=== PATIENT | female | born 2000 | race African-American/Black ===

== ENCOUNTER 2024-04-15 12:09 | Emergency (ER) | payer OTHER, SELFPAY ==
--- NOTE | ~2024-04-15 | XR_ITS ---
EXAMINATION: XR HAND/WRIST, LEFT CLINICAL INFORMATION: History injury, wrist pain COMPARISON: None TECHNIQUE: PA, lateral, and oblique views of the left hand and wrist. FINDINGS: The bones and soft tissues are normal. No fracture. Alignment is anatomic. Joint spaces are maintained. No erosions or soft tissue calcifications. XR/XR hand wrist LT IMPRESSION: No acute osseous process
[2024-04-15 12:55] VITALS: BP 117/76; PULSE 70; RESP 16; TEMP 36.5; O2SAT 100; BMI 33.3
--- NOTE | 2024-04-15 12:59 | ED_ITS ---
HPI - Extremity Problem General Chief complaint: Extremity Injury, Upper Stated complaint: Hand injury @ work Time Seen by Provider: 04/15/24 14:41 Source: patient Mode of arrival: ambulatory Limitations: no limitations History of Present Illness HPI Narrative: Patient is a 23-year-old female Right-hand dominant who presents emergency department for evaluation of left wrist pain. 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 She denies numbness tingling cold sensation to the hand. No redness bruising swelling or deformity. Pain is made worse with movement of the wrist joint, has full range of motion to the fingers Related Data Allergies Allergy/AdvReac Type Severity Reaction Status Date / Time No Known Allergies Allergy Verified 04/15/24 12:57 Review of Systems Review of Systems: Yes all other systems are reviewed and are negative PMFSH Past Medical History Attestation statement: The following information was validated with the patient. Source: old records reviewed Social History Social History Advance Directives: No Advance Directives Information Provided: No Do you have a plan to hurt others: No Plan Physical Exam Vital Signs: Vital Signs: Last Vital Signs Temp 98.2 F 04/15/24 16:30 Pulse 90 04/15/24 16:30 Resp 18 04/15/24 16:30 BP 135/70 04/15/24 16:30 Pulse Ox 100 04/15/24 16:30 O2 Del Method Room Air 04/15/24 16:30 BMI result Body Mass Index 33.3 Appearance: Alert.?Oriented to person, place and time. No acute distress.?Normal affect. Neck: Normal inspection.? Neck supple.?? CVS: Heart sounds normal. Normal heart rate and rhythm.? Pulses normal.?? Respiratory: No respiratory distress.? Lung sounds clear to auscultation bilaterally?? Skin: Skin warm and dry.? Normal skin color.? Extremities: No lower extremity edema.? decreased AROM to left wrist due to pain, full AROM to the digits. No erythema. No warmth. 2+ radial pulse bilaterally Neuro: Moves all extremities spontaneously. Sensation intact bilaterally. Ambulates with normal steady gait. Course Course Course Narrative: RME: [employer]One by ROHITH Ramírez. 23-year-old female presents to ED for left wrist pain. Patient states yesterday at work car bounced back and pushed against her hand with caused her left wrist to hyperextend. Motor neurovascular exam intact. Sent for x-rays. No ecchymosis or deformities. Medications Administered Discontinued Medications Generic Name Dose Route Start Last Admin Trade Name Justina PRN Reason Stop Dose Admin Ibuprofen 800 mg 04/15/24 13:25 04/15/24 13:27 Ibuprofen 800 Mg Tablet PO 04/15/24 13:26 800 mg ONCE ONE Administration Medical Decision Making Medical Decision Making MDM Narrative: patient is a 23-year-old female who presents emergency department for evaluation of traumatic left wrist pain, she is right-hand dominant. No obvious deformity or swelling on evaluation. No snuffbox tenderness. Extremity is neurovascularly intact distally. XR was obtained no acute fracture dislocation. At this time symptoms most consistent with a sprain to the left wrist. No past medical history or exam findings to be concern for septic joint. Placed in a volar splint, advised follow-up with PCP/ workman's comp with her employer. Acetaminophen/ ibuprofen for pain, rest, ice, elevation. Discussed worrisome signs and symptoms that would warrant re-evaluation in the emergency department. All questions answered. Differential Diagnosis Differential Diagnoses: The differential diagnosis associated with the presentation includes ( See narrative above) Independent Interpretation I performed an independent interpretation of an: Plain X-Ray ( no acute fracture) Radiology Impression Discussion of test interpretation with radiology: I have reviewed the radiologist's reading. Radiologist Impression: XR/XR hand wrist LT IMPRESSION: No acute osseous process Prescription Management I considered prescription management with: Pain Medication ( acetaminophen/ibuprofen) Discharge Plan Discharge Clinical Impression: Sprain of left wrist Patient Disposition: Home, Self-Care Instructions: Wrist Sprain (ED) Additional Instructions: X-ray today does not show any evidence of any fracture or dislocation. You can take ibuprofen 200 mg, 3 tablets (600mg) every 6-8 hours as needed for pain, in addition to Tylenol 500 mg, 2 tablets (1,000mg) every 4-6 hours as needed for pain, but not to exceed 3 doses daily (3,000mg).? as discussed, given this is a work-related injury please contact your employer to determine their policy regarding workman's Comp and return to work. Follow-up with your primary care provider. Referrals: Physician,Unknown J [Primary Care Provider] - Stand Alone Forms: Work/School Release Interventions: ED Discharge Assessment Last Done: 04/15/24 16:30 Discharge Date/Time: 04/15/24 16:31 Print Language: Vietnamese
[2024-04-15] MEDS: Ibuprofen 800 MG TABLET PO (13:27)
[2024-04-15 14:30] VITALS: BP 133/74; PULSE 90; TEMP 36.7; O2SAT 100
[2024-04-15 16:30] VITALS: BP 135/70; PULSE 90; RESP 18; TEMP 36.8; O2SAT 100
== END 2024-04-15 16:31 | disposition home or self-care (01) ==
PROVIDERS: Emergency Provider Emergency Medicine
DX: S63.502A Unspecified sprain of left wrist, initial encounter (principal); X50.1XXA Overexertion from prolonged static or awkward postures, initial encounter; Y93.9 Activity, unspecified; Y92.89 Other specified places as the place of occurrence of the external cause; Y99.0 Civilian activity done for income or pay
CPT/HCPCS: 73110; 73130; 99283; 99284

== ENCOUNTER 2025-05-08 10:58 | Outpatient (AMB) | payer OTHER, SELFPAY ==
--- NOTE | 2025-05-08 11:01 | A.OFFPC_ITS ---
Vital Signs 05/08/25 11:05 Height 5 ft 4.17 in Weight 203 lb BMI 34.7 BP 117/80 Respiration 14 Pulse 66 Pulse Source Pulse Oximeter Temp 98.2 F Temp Source Temporal Artery Scan Pulse Oximetry (%) 100 Oxygen Delivery Method Room Air Intake Visit Reasons: establish care; new lump, left breast General Internal Medicine Doctor Required: No Accompanied by: Self / Same As Patient Allergies No Known Allergies Allergy (Verified 05/08/25 11:15) Medication List - Last Reconciled 05/08/25 by Lian Al PA-C No Known Home Meds Tobacco use date assessed: 05/08/25 Dental Screening Dental Screen Date: 05/08/25 Did you have a dental visit in the last 12 months?: Yes Did you have a dental problem in the last 6 months where you did not have access to dental care?: No Was dental information given to patient?: Patient has dentist HPI establish care; new lump, left breast HPI Details The patient is a 24-year-old female presenting for a new patient appointment and evaluation of a right breast lump. The patient has a history of epilepsy, with no seizures reported recently, allowing her to drive. The etiology of the seizures remains unknown, and she no longer sees a neurologist. Previous evaluations included EEGs and brain imaging, which were unremarkable. The patient reports a right breast lump noticed by her mother approximately one week ago. There is no associated pain, discharge, or family history of breast cancer. [facility] Medical History Class 1 obesity with body mass index (BMI) of 34.0 to 34.9 in adult Epilepsy Establishing care with new doctor, encounter for Lump of right breast Family History Father No problems noted. Mother No problems noted. Social History Housing: House Alcohol intake: current Alcohol intake frequency: holidays/special occasions only Patient Tobacco Use Status: Never used Tobacco service: No Current occupational status: employed Cognitive needs: No Hearing needs: No Vision needs: No Questionnaire PHQ-9 Over the last 2 weeks, how often have you been bothered by any of the following problems? 1. Little interest or pleasure in doing things: not at all 2. Feeling down, depressed, or hopeless: not at all 3. Trouble falling or staying asleep, or sleeping too much: not at all 4. Feeling tired or having little energy: not at all 5. Poor appetite or overeating: not at all 6. Feeling bad about yourself - or that you are a failure or have let yourself or your family down: not at all 7. Trouble concentrating on things, such as reading the newspaper or watching television: not at all 8. Moving or speaking so slowly that other people could have noticed. Or the opposite - being so fidgety or restless that you have been moving around a lot more than usual: not at all 9. Thoughts that you would be better off or of hurting yourself in some way: not at all Total score: 0 Depression Screening Interpretation: Negative Depression Screening Done: Yes 45277 - PHQ-9 Billing: Yes Source: Developed by Drs. Aram Cadena, Malaika Saavedra, Eulogio Torres and colleagues, with an educational oracio from [employer]. Thrive Questionnaire Date Thrive assessed: 05/08/25 I am a: Patient What is your living situation today?: I have a steady place to live Within the past 12 months, did the food you bought not last and you didn't have the money to get more?: Never true Within the past 12 months, did you worry whether your food would run out before you got money to buy more?: Never true Do you have trouble paying for medicines?: No Do you have trouble getting transportation to medical appointments?: No Do you have trouble paying your heating and electricity bill?: No Do you have trouble taking care of your child, family member or friend?: No Do you have trouble with day-to-day activities such as bathing, preparing meals, shopping, managing finances, etc.?: No Are you currently unemployed and looking for a job?: No Are you interested in more education?: No Please select the resources that you would like help with: None THRIVE Score: 0 AUDIT C Alcohol Use Questionnaire (AUDIT-C) 1. How often do you have a drink containing alcohol?: Monthly or less 2. How many drinks containing alcohol do you have on a typical day when you are drinking?: 1 or 2 3. How often do you have six or more drinks on one occasion?: Never Total Score: 1 Score Reviewed/Action Taken: No ZOILA-7 AMB Questionnaire ZOILA-7 Date ZOILA - 7 assessed: 05/08/25 Feeling nervous, anxious, or on edge: 0 = Not at all Not being able to stop or control worryin = Not at all Worrying too much about different things: 0 = Not at all Trouble relaxin = Not at all Being so restless that it is hard to sit still: 0 = Not at all Becoming easily annoyed or irritable: 0 = Not at all Feeling afraid as if something awful might happen: 0 = Not at all Total ZOILA-7 score (0-4 normal; 5-9 mild; 10-14 moderate; 15-21 severe): 0 Source: Developed by Drs. Aram Cadena, Malaika Saavedra, Eulogio Torres and colleagues, with an educational oracio from [employer]. ZOILA-7 Assessment Billing ZOILA-7 Assessment Tool: ZOILA-7 Assessment 26902 Review of Systems Const Details: - Neurological: Denies recent seizures. - Breast: Reports right breast lump, denies pain or discharge. - Gastrointestinal: Denies abdominal pain, black or bloody stools. - Cardiovascular: Denies chest pain, shortness of breath. - General: Denies leg swelling. Physical exam (Primary Care) Vital Signs: Last Vital Signs Temp 98.2 F 05/08/25 11:05 Pulse 66 05/08/25 11:05 Resp 14 05/08/25 11:05 BP 117/80 05/08/25 11:05 Pulse Ox 100 05/08/25 11:05 Oxygen Delivery Method Room Air 05/08/25 11:05 Care Plan Goal for BP management: <140/90 at Goal BMI result Body Mass Index 34.7 BMI Assessment/Plan discussion: High BMI High, discussed plan: lifestyle, weight reduction, dietary, physical activity and alcohol moderation Tobacco/Smoking Status: Tobacco use Status Tobacco use date assessed 05/08/25 05/08/25 11:09 Patient Tobacco Use Status Never used Tobacco 05/08/25 11:09 PHQ-9: PHQ-9 Score PHQ-9: Total score 0 05/08/25 11:09 Depression Screening Interpretation: Negative Thrive Assessment: Date of Thrive Assessment Date Thrive assessed 05/08/25 05/08/25 11:09 Const Other: Appearance: Alert. Oriented X3. No acute distress. Head: Normal external exam. Normocephalic. Atraumatic. Eyes: Pupils are equal, round, and reactive to light. Extraocular movements intact. Conjunctiva and sclera normal. Eyelids normal. Ears: External auditory canal normal. Tympanic membranes normal. Throat: Pharynx normal. Uvula midline. Moist mucous membranes. Neck: Normal inspection. Neck supple. Full range of motion. No adenopathy. Cardiovascular: Normal heart rate and rhythm. Respiratory: No respiratory distress. Painless inspiration. Breast: To right breast patient has a possible ingrown hair to right breast 8-9 o'clock aspect of right breast aspect. No nipple discharge. No additional lumps noted. No lymphadenopathy noted. Left breast completely normal exam. Back: Full range of motion noted. Skin: Skin warm and dry. Normal skin color. Normal skin turgor. No rashes/lesions/lacerations noted. Extremities: Extremities exhibit normal range of motion. Extremities nontender. Neuro: Oriented X 3. No motor deficit. No sensory deficit. Reflexes normal. Coding Level of Care Code New Pt Level 4 (45120) Complex EM visit Add On G2211 Diagnoses Establishing care with new doctor, encounter for Z76.89 Lump of right breast N63.10 Epilepsy G40.909 Class 1 obesity with body mass index (BMI) of 34.0 to 34.9 in adult E66.811; Z68.34 Additional Codes PHQ-9 - 68087 - PHQ-9 Billing: Yes ([id number]) ZOILA-7 Assessment Billing - ZOILA-7 Assessment Tool: ZOILA-7 Assessment 58657 ([id number]) Assessment & Plan Assessment & Plan (1) Establishing care with new doctor, encounter for: Code(s): Z76.89 - Persons encountering health services in other specified circumstances Category: Medical (2) Lump of right breast: Comment: at 8-9 O'clock position Code(s): N63.10 - Unspecified lump in the right breast, unspecified quadrant Category: Medical Plan: The patient reports a right breast lump noticed by her mother approximately one week ago. There is no associated pain, discharge, or family history of breast cancer. An ultrasound has been ordered, and the patient will be contacted within two to three weeks for scheduling. Warm compresses and topical Bactroban are recommended to manage the lump. (3) Epilepsy: Code(s): G40.909 - Epilepsy, unspecified, not intractable, without status epilepticus Category: Medical Plan: The patient has a history of epilepsy with no recent seizures, allowing her to drive. The etiology remains unknown, she follows up with Neurology in [place]. Reports that she followed up with them approximately 1 year ago. Condition is chronic and stable will continue to monitor. (4) Class 1 obesity with body mass index (BMI) of 34.0 to 34.9 in adult: Code(s): E66.811 - Obesity, class 1; Z68.34 - Body mass index [BMI] 34.0-34.9, adult Category: Medical Plan: Patient has improved diet and exercise regimen. Condition is chronic and stable continue to monitor. Plan Plan Patient was informed and verbally consented to the use of an ambient scribe for clinic note documentation during this visit. 1. Epilepsy The patient has a history of epilepsy with no recent seizures, allowing her to drive. The etiology remains unknown, and she no longer sees a neurologist. 2. Right Breast Lump The patient reports a right breast lump noticed by her mother approximately one week ago. There is no associated pain, discharge, or family history of breast cancer. An ultrasound has been ordered, and the patient will be contacted within two to three weeks for scheduling. Warm compresses and topical Bactroban are recommended to manage the lump. During the visit, we discussed the patient's history of epilepsy, noting the absence of recent seizures and the lack of a current neurologist. For the right breast lump, we reviewed the absence of pain or discharge and the lack of family history of breast cancer. I explained the plan to order an ultrasound and the use of warm compresses and topical Bactroban. Orders: Orders US breast RT limited Today N63.10 - Unspecified lump in the right breast, unspecified quadrant C Reactive Protein Today Z00.00 - Encounter for general adult medical examination without abnormal findings Comprehensive Purchase. Panel Fast Today Z00.00 - Encounter for general adult medical examination without abnormal findings Liver Panel Today Z00.00 - Encounter for general adult medical examination without abnormal findings Magnesium Today Z00.00 - Encounter for general adult medical examination without abnormal findings Lipid Panel Today Z00.00 - Encounter for general adult medical examination without abnormal findings Hemoglobin A1c Today Z00.00 - Encounter for general adult medical examination without abnormal findings Vitamin B12 and Folate Today Z00.00 - Encounter for general adult medical examination without abnormal findings MM diagnostic mammo BI Today N63.10 - Unspecified lump in the right breast, unspecified quadrant Complete Blood Count Auto Diff Today Z00.00 - Encounter for general adult medical examination without abnormal findings TSH reflex Free T4 Today Z00.00 - Encounter for general adult medical examination without abnormal findings Vitamin D 25-OH Total Today Z00.00 - Encounter for general adult medical examination without abnormal findings Medications: New mupirocin 2% 1 appl topical TID 22 grams 0RF Patient Instructions: - Use warm compresses on the right breast lump. - Apply topical Bactroban to the lump as directed. - Await contact for ultrasound scheduling within two to three weeks. - Follow up in one month if ultrasound and mammogram are not completed. - Complete fasting blood work as ordered.
[2025-05-08 11:05] VITALS: BP 117/80; PULSE 66; RESP 14; TEMP 36.8; O2SAT 100; BMI 34.7
--- OUTSIDE RECORDS SUMMARY | 2025-05-08 11:42 | XMS_ITS | Clinical Summary ---
Author Organization [facility] ity Address [id number] [place] [id number] Care Team Providers Care Director Surface Transportation Name Role Phone Aleshia Fatima MD Primary Care Provider [phone] Social History Tobacco Use Types Packs/Day Years Used Date Smoking Tobacco: Never Assessed Comments Unknown Sex and Gender Information Value Date Recorded Sex Assigned at Not on file Legal Sex Female 11:40 AM EDT Gender Identity Not on file Sexual Orientation Not on file Plan of Treatment Upcoming Encounters Date Type Department Care Team (Late st Contact Info) Description 05/23/2025 3:30 PM EDT Office Visit Bariatric Surgery - [place] [address] [id number] Levar Rushing MD [address] [address] Health Maintenance Due Date Last Done Comments Gonorrhea/Chlamydia Screening 2002 HPV Vaccines (1 - 3-dose series) 2017 Meningococcal B Vaccine (1 o f 2 - Standard) 2018 DTaP,Tdap,and Td Vaccines (1 - Tdap) 2021 Hepatitis B Vaccines (1 of 3 - 19+ 3-dose series) 2021 Cervical Cancer Screening: P ap Smear 2023 COVID-19 Vaccine ( - 2023-2 5 season) 2024 Depression Screening 08/17/2024 HIV Screening 08/17/2024 Hepatitis C Screening 08/17/2024 Social Influencers of Health Screening 08/17/2024 Influenza Vaccine (Season Ended) 2025 HIB Vaccines Aged Out No longer eligi ble based on patient's age to complete this topic Hepatitis A Vaccines Aged Out No long er eligible based on patient's age to complete this topic IPV Vaccines Aged Out No longer eligi ble based on patient's age to complete this topic MMR Vaccines Aged Out No longer eligi ble based on patient's age to complete this topic Meningococcal ACWY Vaccine Aged Out N o longer eligible based on patient's age to complete this topic Pneumococcal Vaccine: Pediat rics (0 to 5 Years) and At-Risk Patients (6 to 64 Years) Aged Out No longer eligible b ased on patient's age to complete this topic RSV Immunization Patients Un uvaldo 20 months Aged Out No longer eligible b ased on patient's age to complete this topic Varicella Vaccines Aged Out No longer eligible based on patient's age to complete this topic Care Teams Director Surface Transportation Relationship Specialty Start Date End Date Aleshia Fatima MD [address] [place] [address] PCP - General 07/27/24
== END 2025-05-08 11:36 | disposition home or self-care (01) ==
LOC: HO.HMCSH 10:58
PROVIDERS: Visit Provider Physician Assistant Medical
DX: Z76.89 Persons encountering health services in other specified circumstances (principal); N63.10 Unspecified lump in the right breast, unspecified quadrant; G40.909 Epilepsy, unspecified, not intractable, without status epilepticus; E66.811 Obesity, class 1; Z68.34 Body mass index [BMI] 34.0-34.9, adult

== ENCOUNTER → 2025-05-08 10:58 | Outpatient (BNVA) | payer OTHER, SELFPAY | PROVIDERS: Visit Provider Physician Assistant Medical | DX: E66.811 Obesity, class 1 (principal); N63.13 Unspecified lump in the right breast, lower outer quadrant; G40.909 Epilepsy, unspecified, not intractable, without status epilepticus; Z76.89 Persons encountering health services in other specified circumstances; Z68.34 Body mass index [BMI] 34.0-34.9, adult | CPT/HCPCS: 96127 ==

== ENCOUNTER 2025-05-09 10:44 | Outpatient (REF) | payer OTHER, SELFPAY ==
[2025-05-09 13:21] LABS: MANUAL DIFF FLAG NO
[2025-05-09 13:30] LABS: Hematocrit 37.4 % (37.0-47.0); Hemoglobin 12.0 g/dl (12.0-16.0); Imm Gran Abs Auto 0.03 X10*3/uL (0.00-0.03); Imm Gran Pct Auto 0.6 % (0.0-0.4); Lymphocytes Absolute Auto 2.3 X10*3/uL (1.2-4.9); Mean Corpuscular HGB Conc 32.1 g/dl (31.0-35.0); Mean Corpuscular Hemoglobin 25.5 pg (27.0-33.0); Mean Corpuscular Volume 79.4 fL (80.0-98.0); NRBC Abs Auto 0.000 X10*3/uL (0.0-0.012); NRBC Pct Auto 0.0 /100WBC (0.0-0.2); Platelet Count 290 X10*3/uL (160-400); Red Blood Count 4.71 X10*6/uL (4.20-5.50); White Blood Count 5.0 X10*3/uL (4.8-10.8)
[2025-05-09 13:42] LABS: Hemoglobin A1C 113.5285 umol/L; Total Hemoglobin (HGBA1C) 3174.5302 umol/L
[2025-05-09 14:03] LABS: Alanine Aminotransferase 11 U/L (0-31); Albumin Level 4.1 g/dL (3.5-5.0); Alkaline Phosphatase 65 U/L (39-117); Anion Gap 9 (12-20); Aspartate Amino Transferase 18 U/L (5-31); Blood Urea Nitrogen 8 mg/dL (9-16); Calcium 8.9 mg/dL (8.4-10.2); Carbon Dioxide 27 mmol/L (22-29); Chloride 105 mmol/L (96-108); Cholesterol 194 mg/dL (<200); Estimated Glomerular Filt Rate > 60; HDL Cholesterol 35 mg/dL (>40); Magnesium 1.8 mg/dL (1.6-2.6); Potassium 3.7 mmol/L (3.3-5.1); Sodium 137 mmol/L (135-145); Total Protein 6.3 g/dL (6.5-8.0); Triglycerides 64 mg/dL (<150)
[2025-05-09 14:15] LABS: Folate 9.4 ng/mL (> or = 4.0); Vitamin B12 462 pg/mL (200-900)
== END 2025-05-09 10:45 | disposition home or self-care (01) ==
LOC: HO.HMGCLDS 10:44
PROVIDERS: PCP Physician Assistant Medical; Visit Provider Physician Assistant Medical
DX: Z00.00 Encounter for general adult medical examination without abnormal findings (principal); Z13.1 Encounter for screening for diabetes mellitus; Z13.6 Encounter for screening for cardiovascular disorders
CPT/HCPCS: 36415; 80053; 80061; 80076; 82248; 82306; 82607; 82746; 83036; 83735; 84443; 85025; 86140

== ENCOUNTER 2025-05-28 08:29 | Outpatient (REF) | payer OTHER, SELFPAY ==
--- NOTE | ~2025-05-28 | US_ITS ---
EXAMINATION: US BREAST LIMITED RIGHT CLINICAL INFORMATION: Right breast lump at 8:00-9:00. COMPARISON: None available. TECHNIQUE: Targeted ultrasound of the breast is performed with real-time terry scale imaging and color Doppler. FINDINGS: Targeted ultrasound was performed at the location of the palpable concern as indicated by the patient at 8:00 to 9 o'clock position. The survey shows a 1.1 x 0.5 x 0.8 cm septated cyst with anechoic content at 8 o'clock position 2 cm from the nipple. No abnormal vascularity demonstrated with color Doppler evaluation. Results are provided to the patient at time of visit by the technologist. US/US breast RT limited IMPRESSION: Right breast: Palpable concern correlates with a 1.1 cm septated cyst. Benign, no evidence of malignancy. Clinical follow-up is recommended. ASSESSMENT: BI-RADS 2 - Benign Findings RECOMMENDATION: 1. Patient should be managed based on the clinical impression. 2. Otherwise, routine annual screening mammography. This patient's information was entered into a reminder system with a target due date for their next mammogram. Electronically signed by: Gabriel Islas MD 05/28/2025 10:03 AM EDT
== END 2025-05-28 08:30 | disposition home or self-care (01) ==
LOC: HO.MAMMO 08:29
PROVIDERS: PCP Physician Assistant Medical; Visit Provider Physician Assistant Medical
DX: N63.15 Unspecified lump in the right breast, overlapping quadrants (principal)
CPT/HCPCS: 76642

== ENCOUNTER → 2025-05-28 08:30 | Outpatient (BNV) | payer OTHER, SELFPAY | PROVIDERS: PCP Physician Assistant Medical; Visit Provider Radiology Body Imaging | DX: N63.11 Unspecified lump in the right breast, upper outer quadrant (principal) | CPT/HCPCS: 76642 ==

== ENCOUNTER 2025-08-19 10:50 | Outpatient (AMB) | payer OTHER, SELFPAY ==
[2025-08-19 10:49] VITALS: BP 110/55; PULSE 75; RESP 16; TEMP 36.2; O2SAT 100; BMI 32.8
--- NOTE | 2025-08-19 10:49 | MHC.PC.OV ---
Vital Signs 08/19/25 10:49 Height 5 ft 4.17 in Weight 192 lb 4 oz BMI 32.8 BP 110/55 L Blood Pressure Location Lt brachial Position Sitting Respiration 16 Pulse 75 Pulse Source Pulse Oximeter Temp 97.2 F Temp Source Temporal Artery Scan Pulse Oximetry (%) 100 Oxygen Delivery Method Room Air Intake Visit Reasons: Follow up Painter Plate Required: No Accompanied by: Self / Same As Patient Allergies No Known Allergies Allergy (Verified 08/19/25 11:17) Medication List - Last Reconciled 08/19/25 by Lian Al PA-C semaglutide (weight loss) (Wegovy) 0.5 mg subcut QWEEK Tobacco use date assessed: 08/19/25 Dental Screening Dental Screen Date: 08/19/25 Did you have a dental visit in the last 12 months?: Yes Did you have a dental problem in the last 6 months where you did not have access to dental care?: No Was dental information given to patient?: Patient has dentist HPI Follow up HPI Details The patient is a 24-year-old female presenting with symptoms suggestive of an upper respiratory tract infection and possible urinary tract infection. The patient reports that her symptoms began last with a runny nose, which progressed to a sore throat by the next morning. She has been experiencing chills but denies any fever. Bmrs-sdt-rpntfuh medications have been used with limited relief. The patient also reports increased frequency of urination, which she attributes to increased fluid intake. There is no history of fever or nausea, and she denies any recent travel or contact with sick individuals. [facility] Medical History (Updated 08/19/25 @ 17:17 by Lian Al PA-C) UTI (urinary tract infection) Upper respiratory infection Dysuria Sore throat Cervical cancer screening Skin mole Low HDL (under 40) Hyperlipidemia LDL goal <100 Vitamin D deficiency Class 1 obesity with body mass index (BMI) of 34.0 to 34.9 in adult Epilepsy Establishing care with new doctor, encounter for Lump of right breast Surgical History No history of previous surgery Family History Father No problems noted. Mother No problems noted. Social History Housing: House Alcohol intake: current Alcohol intake frequency: holidays/special occasions only Patient Tobacco Use Status: Never used Tobacco service: No Current occupational status: employed Cognitive needs: No Hearing needs: No Vision needs: No Questionnaire PHQ-9 Over the last 2 weeks, how often have you been bothered by any of the following problems? 1. Little interest or pleasure in doing things: not at all 2. Feeling down, depressed, or hopeless: not at all 3. Trouble falling or staying asleep, or sleeping too much: not at all 4. Feeling tired or having little energy: not at all 5. Poor appetite or overeating: not at all 6. Feeling bad about yourself - or that you are a failure or have let yourself or your family down: not at all 7. Trouble concentrating on things, such as reading the newspaper or watching television: not at all 8. Moving or speaking so slowly that other people could have noticed. Or the opposite - being so fidgety or restless that you have been moving around a lot more than usual: not at all 9. Thoughts that you would be better off or of hurting yourself in some way: not at all Total score: 0 Depression Screening Interpretation: Negative Depression Screening Done: Yes 11003 - PHQ-9 Billing: Yes Source: Developed by Drs. Aram Cadena, Mlaaika Saavedra, Eulogio Torres and colleagues, with an educational oracio from [employer] Thrive Questionnaire Date Thrive assessed: 08/19/25 I am a: Patient What is your living situation today?: I have a steady place to live Within the past 12 months, did the food you bought not last and you didn't have the money to get more?: Never true Within the past 12 months, did you worry whether your food would run out before you got money to buy more?: Never true Do you have trouble paying for medicines?: No Do you have trouble getting transportation to medical appointments?: No Do you have trouble paying your heating and electricity bill?: No Do you have trouble taking care of your child, family member or friend?: No Do you have trouble with day-to-day activities such as bathing, preparing meals, shopping, managing finances, etc.?: No Are you currently unemployed and looking for a job?: No Are you interested in more education?: No Please select the resources that you would like help with: None THRIVE Score: 0 AUDIT C Alcohol Use Questionnaire (AUDIT-C) 1. How often do you have a drink containing alcohol?: Monthly or less 2. How many drinks containing alcohol do you have on a typical day when you are drinking?: 1 or 2 3. How often do you have six or more drinks on one occasion?: Never Total Score: 1 Score Reviewed/Action Taken: No ZOILA-7 AMB Questionnaire ZOILA-7 Date ZOILA - 7 assessed: 08/19/25 Feeling nervous, anxious, or on edge: 0 = Not at all Not being able to stop or control worryin = Not at all Worrying too much about different things: 0 = Not at all Trouble relaxin = Not at all Being so restless that it is hard to sit still: 0 = Not at all Becoming easily annoyed or irritable: 0 = Not at all Feeling afraid as if something awful might happen: 0 = Not at all Total ZOILA-7 score (0-4 normal; 5-9 mild; 10-14 moderate; 15-21 severe): 0 Source: Developed by Drs. Aram Cadena, Malaika Saavedra, Eulogio Torres and colleagues, with an educational oracio from [employer] ZOILA-7 Assessment Billing ZOILA-7 Assessment Tool: ZOILA-7 Assessment 74763 Review of Systems Const Details: - General: Reports chills, denies fever - Respiratory: Reports sore throat and runny nose, denies cough - Genitourinary: Reports increased frequency of urination, denies dysuria All systems reviewed & are unremarkable except as noted in HPI and below Physical exam (Primary Care) Vital Signs: Last Vital Signs Temp 97.2 F 08/19/25 10:49 Pulse 75 08/19/25 10:49 Resp 16 08/19/25 10:49 BP 110/55 L 08/19/25 10:49 Pulse Ox 100 08/19/25 10:49 Oxygen Delivery Method Room Air 08/19/25 10:49 Care Plan Goal for BP management: <140/90 at Goal BMI result Body Mass Index 32.8 BMI Assessment/Plan discussion: High BMI High, discussed plan: lifestyle, weight reduction, dietary, physical activity, alcohol moderation and other Tobacco/Smoking Status: Tobacco use Status Tobacco use date assessed 08/19/25 08/19/25 11:01 Patient Tobacco Use Status Never used Tobacco 08/19/25 10:51 PHQ-9: PHQ-9 Score PHQ-9: Total score 0 08/19/25 11:59 Depression Screening Interpretation: Negative Thrive Assessment: Date of Thrive Assessment Date Thrive assessed 08/19/25 08/19/25 11:01 Const Other: Appearance: Alert. Oriented X3. No acute distress. Head: Normal external exam. Normocephalic. Atraumatic. Eyes: Pupils are equal, round, and reactive to light. Extraocular movements intact. Conjunctiva and sclera normal. Eyelids normal. Ears: External auditory canal normal. Tympanic membranes normal. Throat: Pharynx normal. Uvula midline. Moist mucous membranes. Throat is sore with no white spots noted. Normal Voice. No trismus. No drooling. Tolerating secretions well. Neck: Normal inspection. Neck supple. Full range of motion. No adenopathy. Thyroid Normal. No meningeal signs. No neck mass noted. Cardiovascular: Normal heart rate and rhythm. Heart sound normal. No murmurs noted. Pulses normal throughout. Respiratory: No respiratory distress. Painless inspiration. Breath sounds normal. No wheezes/rales/rhonchi noted. Chest nontender. No accessory muscle usage noted or decreased air movement noted. Back: Full range of motion noted. Skin: Skin warm and dry. Normal skin color. Extremities: Extremities exhibit normal range of motion. Office Procedures Flu Questionnaire Does the patient have a severe egg allergy?: No Does the patient have severe life threatening allergies?: No Does the patient have a fever or illness today?: No Has the patient ever had Guillain-Cascade Syndrome?: No Has the patient ever had any past reaction to a flu shot?: No Immunizations Fluarix [id number] (PF) 45 mcg (15 mcg x 3)/0.5 mL IM syringe Performing Provider: Lian Al PA-C [facility] Administered by: CM Joy on 08/19/25 11:23 Dose Route Admin Location Dispensed Lot Number Expiration Date NDC Layout Operator 0.5 mL IM Left Deltoid 0.5 mL [id number] 05/06/26 [id number] [employer] VIS Given Date VIS Provided VIS Publication Date 08/19/25 Single Vaccine 24 Eligibility Eligibility Date Funding Source Not VF Eligible 08/19/25 Private Coding Level of Care Code Est Pt Level 4 (57889) Complex EM visit Add On G2211 Diagnoses Upper respiratory infection J06.9 Sore throat J02.9 UTI (urinary tract infection) N39.0 Additional Codes ZOILA-7 Assessment Billing - ZOILA-7 Assessment Tool: ZOILA-7 Assessment 84973 ([id number]) PHQ-9 - 39685 - PHQ-9 Billing: Yes ([id number]) Assessment & Plan Assessment & Plan (1) Upper respiratory infection: Code(s): J06.9 - Acute upper respiratory infection, unspecified Category: Medical Plan: The patient will be tested for COVID-19, RSV, and influenza to rule out viral causes of her symptoms. Symptomatic treatment with ygda-bxf-rncfnpy medications such as Motrin and Tylenol is advised. (2) Sore throat: Code(s): J02.9 - Acute pharyngitis, unspecified Category: Medical Plan: A throat swab will be performed to test for streptococcal infection. Pending results, the patient will be started on Augmentin for seven days to treat the suspected bacterial infection. (3) UTI (urinary tract infection): Code(s): N39.0 - Urinary tract infection, site not specified Category: Medical Plan: A urine test will be conducted to confirm the presence of a urinary tract infection. If confirmed, the current antibiotic regimen may cover the infection, or additional antibiotics will be prescribed if necessary. Plan Plan Patient was informed and verbally consented to the use of an ambient scribe for clinic note documentation during this visit. 1. Upper Respiratory Tract Infection The patient will be tested for COVID-19, RSV, and influenza to rule out viral causes of her symptoms. Symptomatic treatment with yuiv-nxo-jdtyfal medications such as Motrin and Tylenol is advised. 2. Possible Streptococcal Pharyngitis A throat swab will be performed to test for streptococcal infection. Pending results, the patient will be started on Augmentin for seven days to treat the suspected bacterial infection. 3. Urinary Tract Infection A urine test will be conducted to confirm the presence of a urinary tract infection. If confirmed, the current antibiotic regimen may cover the infection, or additional antibiotics will be prescribed if necessary. I discussed with the patient the possibility of a streptococcal infection and the rationale for starting antibiotics. We also reviewed the plan to test for COVID-19, RSV, influenza, and a urinary tract infection. The patient was advised to continue symptomatic treatment and to take probiotics to prevent antibiotic-associated diarrhea. Orders: Orders Influenza [id number] Immunization Today Z23 - Encounter for immunization SARS-CoV2/FLU/RSV Today J02.9 - Acute pharyngitis, unspecified Strep A Nucleic Acid Today J02.9 - Acute pharyngitis, unspecified Throat Culture Today J02.9 - Acute pharyngitis, unspecified UA CC w/rflx Micro + Cult Today Z00.00 - Encounter for general adult medical examination without abnormal findings Ur Preg Test Today R30.0 - Dysuria Medications: New amoxicillin-pot clavulanate 875-125 mg 1 tab PO BID 14 tabs 0RF 7 days Patient Instructions: - Take Augmentin as prescribed for seven days. - Continue using bbra-fot-mniusdl medications like Motrin and Tylenol for symptom relief. - Take probiotics to prevent diarrhea while on antibiotics. - Complete the urine test as instructed and await results. - Expect a follow-up call with test results within one to two days.
--- OUTSIDE RECORDS SUMMARY | 2025-08-19 10:53 | XMS_ITS | Clinical Summary ---
Author Organization [address] [facility] Address [address] [place] [address] Phone Care Team Providers Care Transcription Manager Name Role Phone Demetri Winslow MD Primary Care Provider [phone] Allergies No known active allergies Medications mupirocin (BACTROBAN) 2 % ointment Apply 2 Applications topically 2 (two) times a day. 5 Active semaglutide (Wegovy) 0.25 mg/0.5 mL injection penIndications: Class 1 obesity due to excess calories with body mass index (BMI) of 33.0 to 33.9 in adult, unspecified whether serious comorbidity present Inject 0.25 mg under the skin every 7 (seven) days. 4 mL 1 5 Active tirzepatide, weight loss, (Zepbound) 2.5 mg/0.5 mL injection Inject 0.5 mL (2.5 mg total) under the skin every 7 (seven) days. 2 mL 5 09/08/20 25 Active Active Problems Problem Noted Date Diagnosed Date Concussion with no loss of consciousness 024 Elevated hemoglobin A1c 07/04/2023 High cholesterol 06/19/2021 Overview (05/23/2025): Procedure Value Date CHOLESTEROL 192 (H) 06/19/2021 HDL 38 06/19/2021 LDL 135.8 (H) 06/19/2021 TRIGLYCERIDES 91 06/19/2021 Dizziness 08/06/2019 Dupuytren contracture 08/06/2019 Migraine without aura and wi thout status migrainosus, not intractable 05/28/2019 Partial idiopathic epilepsy with seizures of localized onset, not intractable, without status epilepticus ([facility] [place], [facility] V28) 05/28/2019 LTBI (latent tuberculosis infection) 01/25/2019 Overview (05/23/2025): CXR neg 2018 Helicobacter pylori infection 01/02/2019 Overview (05/23/2025): POSITIVE stool 02/23- tx started. Needs recheck in 4 weeks Seizure disorder ([facility] V24, [facility] V28) 12/09 Overview (05/23/2025): Abnormal MRI, EEG On carbamazapine Encounters Date Type Department Care Team Description 05/28/2025 Telephone Bariatric Surgery [address] [phone] Levar Rushing MD 05/23/2025 3:30 PM EDT Office Visit Bariatric Surgery [address] [phone] Levar Rushing MD Class 1 obesity due to excess calories with body mass index (BMI) of 33.0 to 33.9 in adult, unspecified whether serious comorbidity present (Primary Dx) from Last 3 Months Social History Tobacco Use Types Packs/Day Years Used Date Smoking Tobacco: Never Assessed Comments Unknown Sex and Gender Information Value Date Recorded Sex Assigned at Not on file Legal Sex Female 11:40 AM EDT Gender Identity Not on file Sexual Orientation Not on file Last Filed Vital Signs Vital Sign Reading Time Taken Comments Blood Pressure 101/68 05/23/2025 3:42 PM EDT Pulse 73 05/23/2025 3:42 PM EDT Temperature 36.6 C (97.8 F) 05/23/2025 3:42 PM EDT Respiratory Rate - - Oxygen Saturation - - Inhaled Oxygen Concentration - - Weight 91.6 kg (202 lb) 05/23/2025 3:42 PM EDT Height 165.1 cm (5' 5 ) 05/23/2025 3:42 PM EDT Body Mass Index 33.61 05/23/2025 3:42 PM EDT Plan of Treatment Upcoming Encounters Date Type Department Care Team (Late st Contact Info) Description 08/21/2025 8:30 AM EDT Nutrition Bariatric Surgery - [place] [address] [phone] Annie Danay, RD [address] [phone] 11/05/2025 8:15 AM EST Office Visit Bariatric Surgery - [place] [address] [phone] Levar Rushing MD [address] [place] [address] Health Maintenance Due Date Last Done Comments Gonorrhea/Chlamydia Screening 2002 IPV Vaccines (3 of 3 - 4-dos e series) 07/09/2020 01/07/2020, 01/02/2019 Hepatitis B Vaccines (3 of 3 - 3-dose series) 10/29/2021 09/03/2021, 01/02/2019 Cervical Cancer Screening: P ap Smear 2023 HIV Screening 08/17/2024 Hepatitis C Screening 08/17/2024 Social Influencers of Health Screening 08/17/2024 Depression Screening 11/07/2024 COVID-19 Vaccine (4 - 2024-2 6 season) 2025 06/22/2022, 06/04/2021, 05/14/2021 Influenza Vaccine (#1) 2025 , 01/02/2019 Cholesterol Screening (Lipid Panel) 06/30/2028 06/30/2023 DTaP,Tdap,and Td Vaccines (4 - Td or Tdap) 06/15/2031 06/15/2021, 01/07/2020, 01/02/2019 RSV Immunization Adult Patients (1 - 1-dose 75+ series) 2077 Hepatitis A Vaccines Completed 01/07/2020, 03/02/2019 HPV Vaccines Completed 06/12/2020, 01/07/2020, 03/02/2019 Meningococcal ACWY Vaccine Completed 04/13, 03/02/2019 Meningococcal B Vaccine Completed 06/15/20 21, 04/13/2021 MMR Vaccines Completed 09/03/2021, 01/02/2019 Varicella Vaccines Completed 09/03/2021, 01/02/2019 HIB Vaccines Aged Out No longer eligi ble based on patient's age to complete this topic Pneumococcal Vaccine: Pediatrics (0 to 5 Years) and At-Risk Patients (6 to 49 Years) Aged Out No longer eligible b ased on patient's age to complete this topic RSV Immunization Patients Under 20 months Aged Out No longer eligible b ased on patient's age to complete this topic Insurance [facility] Care Teams Transcription Manager Relationship Specialty Start Date End Date Demetri Winslow MD [facility] [address] [place] [address] [address] [place] [address] PCP - General Internal Medicine 05/22/25
== END 2025-08-19 11:41 | disposition home or self-care (01) ==
LOC: HO.HMCSH 10:50
PROVIDERS: PCP Physician Assistant Medical; Visit Provider Physician Assistant Medical
DX: J06.9 Acute upper respiratory infection, unspecified (principal); J02.9 Acute pharyngitis, unspecified; N39.0 Urinary tract infection, site not specified; Z23 Encounter for immunization

== ENCOUNTER 2025-08-19 10:50 | Outpatient (REF) | payer OTHER, SELFPAY ==
--- OUTSIDE RECORDS SUMMARY | 2025-08-19 11:39 | XMS_ITS | Clinical Summary ---
Author Organization [facility] r Address [address] [place] [address] Phone Care Team Providers Care Parts Room Assistant Name Role Phone Aleshia Fatima MD Unavailable Aleshia Fatima MD Primary Care Provider [phone] Allergies No known active allergies Medications omeprazole (PRILOSEC) 20 MG capsule Take 20 mg by mouth daily. Active diazePAM (DIASTAT ACUDIAL) 12.5-15-17.5-20 mg Kit Insert 15 mg into the rectum once as needed for up to 1 dose. For seizures lasting greater than 3 minutes. 1 each 9 Active hydrocortisone 2.5 % cream Apply topically 3 (three) times a day as needed for other. 30 g 9 Active permethrin (ELIMITE) 5 % cream Apply to skin from head to soles of feet. Remove cream after 8 to 14 hours (shower or bath). 60 g 1 9 Active melatonin 5 mg tablet Take 1 tablet (5 mg total) by mouth nightly. 30 tablet 5 1 Active folic acid (FOLVITE) 1 mg tablet Take 1 tablet (1 mg total) by mouth daily. 90 tablet 2 2 Active Active Problems Problem Noted Date Diagnosed Date Concussion with no loss of consciousness 04/29/2 024 Dupuytren contracture 08/06/2019 Dizziness 08/06/2019 Partial idiopathic epilepsy with seizures of localized onset, not intractable, without status epilepticus 05/28/2019 Migraine without aura and wi thout status migrainosus, not intractable 05/28/2019 Health care maintenance 01/09/2019 Overview (01/09/2019): CPE 01/09/2019 Assessment & Plan (01/09/2019 11:00 AM EST): - blood tests, h pylori - imms - acne: topical tx at next visit - dental referral - PTSD ? - vaccines: flu,, hep B, IPV, td, MMR, V -neuro to schedule EEG, MRI, f/u seizure disorder Hep B immune, MMRV immune + positive quant gold- needs xray, TB clinic appt + h pylori, will need treatment F/u january 15 with me Hepatitis B immune 01/03/2019 Seizure disorder 01/02/2019 Overview (01/02/2019): Abnormal MRI, EEG On carbamazapine H. pylori infection 01/02/2019 Family history of brain tumor 01/02/2019 Resolved Problems Problem Noted Date Diagnosed Date Resolved Date Chronic tension-type headach e, not intractable 01/02/2019 01/02/2019 Encounter to establish care 01/02/2019 01/09/2019 Immunizations Immunization Administration Dates Next Due Hepatitis B, Pedi/Adolescent 01/02/2019 IPV 01/02/2019 Influenza vaccine (FLULAVAL/ FLUZONE/FLUARIX TRIV) intramuscular PF syringe (>=6 months and older) 01/02/2019 MMR 01/02/2019 TDAP 01/02/2019 Varicella 01/02/2019 Social History Tobacco Use Types Packs/Day Years Used Date Smoking Tobacco: Never Smokeless Tobacco: Never Housing Answer Date Recorded What is your living situation today? I have a [facility] place to live 02/15/2019 Medications Answer Date Recorded Do you have trouble paying for prescriptions? No 01/02/2019 Utilities Answer Date Recorded Do you have trouble paying f or utilites (heat, electricity, internet, or phone bill)? No 01/02/2019 Caregiving [place] Answer Date Recorded Taking care of a child, elder, or disabled sheyla blum No 01/02/2019 Employment Answer Date Recorded Looking for a job, changing jobs, or getting job training No 01/02/2019 Education Answer Date Recorded Getting more education or he lp with school (early child education under 5 years old, high school diploma or GED, college level education) Yes 01/02/2019 Food Answer Date Recorded Within the past 12 months, w ere you worried whether your food would run out before you got money to buy more? Sometimes true 0 01/02/2019 Within the past 12 months, d id the food you bought just didn't last and you didn't have money to get more? Never true Transportation Answer Date Recorded Do you have trouble getting transportation to medical appointments? No 01/02/2019 Social Support Answer Date Recorded Getting more education or he lp with school (early child education under 5 years old, high school diploma or GED, college level education) Yes 01/02/2019 Comments Unknown Sex and Gender Information Value Date Recorded Sex Assigned at Female 04/07/2023 10:12 AM EDT Legal Sex Female 10:10 PM EST Gender Identity Not on file Sexual Orientation Not on file Last Filed Vital Signs Vital Sign Reading Time Taken Comments Blood Pressure 127/72 11/20/2019 3:57 PM EST Pulse 101 11/20/2019 3:57 PM EST Temperature 37.2 C (98.9 F) 02/15/2019 10:19 AM EDT Respiratory Rate 16 02/15/2019 10:19 AM EDT Oxygen Saturation 100% 11/20/2019 3:57 PM EST Inhaled Oxygen Concentration - - Weight 76.3 kg (168 lb 3.4 oz) 11/20/2019 3:57 P M EST Height 161 cm (5' 3.39 ) 08/21/2019 11:00 AM EDT Body Mass Index - - Plan of Treatment Health Maintenance Due Date Last Done Comments Hepatitis C Antibody Lifetim e Screening 2002 LEEP 2002 Oral Health Screen 05/05/2003 HEIP Disability Screen 2007 Psych Substance Use Screen 2014 CHLAMYDIA SCREENING 2017 HPV VACCINES (1 - 3-dose series) 2017 Relationship Safety Screening 2017 MENINGOCOCCAL B (1 of 2 - Standard) 2018 HEPATITIS B VACCINES (2 of 3 - 3-dose series) 01/30/2019 01/02/2019 IPV VACCINES (2 of 3 - 4-dos e series) 01/30/2019 01/02/2019 VARICELLA VACCINES (2 of 2 - 13+ 2-dose series) 01/30/2019 01/02/2019 BEHAVIORAL HEALTH SCREEN 07/02/2019 019, 01/02/2019 THRIVE SCREENING 02/20/2020 08/21/2019 Cervical Cancer Screening 2023 Colposcopy 2023 PAP SMEAR 2023 Pap + HPV 2023 COVID-19 Vaccine (4 - 2024-2 6 season) 2025 06/22/2022, 06/04/2021, 05/14/2021 INFLUENZA VACCINE (#1) 2025 , 01/02/2019, 01/02/2019 DTAP/TDAP VACCINE (2 - Td or Tdap) 01/02/2029 01/02/2019 Zoster Vaccine (1 of 2) 2052 HIV Lifetime Screening Completed 01/02/2019 Hepatitis B Lifetime Screening Completed 01/02/2019 MMR VACCINES Completed 01/02/2019 HEPATITIS A VACCINES Aged Out No long er eligible based on patient's age to complete this topic HIB VACCINES Aged Out No longer eligi ble based on patient's age to complete this topic MENINGOCOCCAL ACWY Aged Out No longer eligible based on patient's age to complete this topic Pneumonia Vaccine 0-49 Years Aged Out No longer eligible based on patient's age to complete this topic ROTAVIRUS VACCINES Aged Out No longer eligible based on patient's age to complete this topic Procedures Procedure Name Priority Date/Time Associated Diagnosis Comments HEPATITIS B SURFACE ANTIGEN Routine 01/02/2019 12:07 PM EST Laboratory examination HIV-1/2 AG/AB INITIAL SCREENING Routine 01/02/2019 12:07 PM EST Laboratory examination from Last 3 Months or Most Recently Relevant to Health Maintenance Results * HIV-1/2 AG/AB Initial Screening (01/02/2019 12:07 PM EST) HIV Ag/Ab Combined Qualitative NON-REACTI VE NON-REACT YANCY 01/02/2019 3:35 PM EST SUNQUEST 01/02/2019 12:0 7 PM EST 01/02/2019 12:17 PM EST us Laura De Souza MD LAB BLOOD ORDERABLES Final Res ult [facility] CLIA [id number] [place] [address], * Hepatitis B surface Antigen (01/02/2019 12:07 PM EST) Hep B Surface Ag NON-REACTI VE NON-REACTI VE 01/02/2019 2:15 PM EST SUNQUEST 01/02/2019 12:0 7 PM EST 01/02/2019 12:16 PM EST us Laura De Souza MD LAB BLOOD ORDERABLES Final Res ult [facility] CLIA [id number] [place] [address], from Last 3 Months or Most Recently Relevant to Health Maintenance Care Teams Parts Room Assistant Relationship Specialty Start Date End Date Aleshia Fatima MD PCP - Insurance 03/23/19 Aleshia Fatima MD [address] [place] [id number] PCP - General 03/05/24
--- OUTSIDE RECORDS SUMMARY | 2025-08-19 11:39 | XMS_ITS | Encounter Summary ---
Author Organization [facility] r Address [address] [place] [address] Phone Care Team Providers Care Shirt Folding Machine Operator Name Role Phone Laura De Souza MD Primary Care Provider [phone] Aleshia Fatima MD Unavailable Turner Kemp MD Primary Care Provider [phone] Aleshia Fatima MD Primary Care Provider [phone] Encounter Details Date Type Department Care Team (Late st Contact Info) Description 03/23/2021 Telephone Pediatric Neurology [address] [place] [phone] [place] [address] Social History Tobacco Use Types Packs/Day Years Used Date Smoking Tobacco: Never Smokeless Tobacco: Never Housing Answer Date Recorded What is your living situation today? I have a [facility] place to live 02/15/2019 Medications Answer Date Recorded Do you have trouble paying for prescriptions? No 01/02/2019 Utilities Answer Date Recorded Do you have trouble paying f or utilites (heat, electricity, internet, or phone bill)? No 01/02/2019 Caregiving [place] Answer Date Recorded Taking care of a child, elder, or disabled sheyla n No 01/02/2019 Employment Answer Date Recorded Looking [...] on file Sexual Orientation Not on file documented as of this encounter Miscellaneous Notes * Telephone Encounter - Tracy Hernandez - 03/23/2021 10:10 AM EDT lvm for parent to schedule virtual follow up with Dr.Mabray Osborne to schedule documented in this encounter Plan of Treatment Not on file documented as of this encounter Visit Diagnoses Not on filedocumented in this encounter Care Teams Shirt Folding Machine Operator Relationship Specialty Start Date End Date Laura De Souza MD PCP - General Adolescent Medicine 01/02/19 12/30/22 Aleshia Fatima MD PCP - Insurance 03/23/19 Turner Kemp MD [place] [phone] (Work) PCP - General Adolescent Medicine 12/31/22 04/06/23 Aleshia Fatima MD [address] [place] [address] PCP - General 03/05/24 documented as of this encounter
[2025-08-19 13:44] LABS: Appearance Urine Clear; Glucose Urine UA Negative (Negative); PH 7.5 (5.0-9.0); Specific Gravity - Urine 1.015 (1.005-1.025); UMIC TRIGGER UACC YES
[2025-08-19 13:46] LABS: UACC Culture Trigger YES; UPreg QC Valid YES
[2025-08-19 14:06] LABS: Resp Syncy Virus RNA Qual PCR NEGATIVE (Negative); SARS COV2 PCR INHOUSE NEGATIVE (Negative)
== END 2025-08-19 10:51 | disposition home or self-care (01) ==
LOC: HO.LAB 10:50
PROVIDERS: PCP Physician Assistant Medical; Visit Provider Physician Assistant Medical
DX: Z00.00 Encounter for general adult medical examination without abnormal findings (principal); J02.9 Acute pharyngitis, unspecified; R30.0 Dysuria; R35.0 Frequency of micturition; N39.0 Urinary tract infection, site not specified; J06.9 Acute upper respiratory infection, unspecified; Z23 Encounter for immunization
CPT/HCPCS: 81001; 81025; 87070; 87086; 87147; 87637; 90471; 90656; 96127

== ENCOUNTER 2025-10-23 08:48 | Outpatient (AMB) | payer OTHER, SELFPAY ==
--- OUTSIDE RECORDS SUMMARY | 2025-10-23 09:20 | XMS_ITS | Clinical Summary ---
Author Organization [address] [facility] Address [address] [place] [address] Phone Care Team Providers Care Brand Engineer Name Role Phone Demetri Winslow MD Primary Care Provider [phone] Allergies No known active allergies Medications mupirocin (BACTROBAN) 2 % ointment Apply 2 Applications topically 2 (two) times a day. 05/08/20 25 Active semaglutide (Wegovy) 0.25 mg/0.5 mL injection penIndications: Class 1 obesity due to excess calories with body mass index (BMI) of 33.0 to 33.9 in adult, unspecified whether serious comorbidity present Inject 0.25 mg under the skin every 7 (seven) days. 4 mL 1 05/23/20 25 Active semaglutide (Wegovy) 1 mg/0.5 mL injection pen Inject 1 mg under the skin every 7 (seven) days. 2 mL 09/24/20 25 025 Active semaglutide (Wegovy) 1 mg/0.5 mL injection pen Inject 1 mg under the skin every 7 (seven) days. 2 mL 09/25/20 25 025 Active semaglutide (Wegovy) 0.5 mg/0.5 mL injection pen Inject 0.5 mg under the skin every 7 (seven) days. 2 mL 08/26/20 25 025 Discontin ued(Reord er) Active Problems Problem Noted Date Diagnosed Date [...] onset, not intractable, without status epilepticus 05/28/2019 LTBI (latent tuberculosis infection) 01/25/2019 Overview (05/23/2025): CXR neg 2018 Helicobacter pylori infection 01/02/2019 Overview (05/23/2025): POSITIVE stool 02/23- tx started. Needs recheck in 4 weeks Seizure disorder 01/02/2019 Overview (05/23/2025): Abnormal MRI, EEG On carbamazapine Encounters Date Type Department Care Team Description 08/21/2025 8:30 AM EDT Nutrition Bariatric Surgery - [address] [place] [phone] Danay Valencia, BRYSON Class 1 obesity with serious comorbidity and body mass index (BMI) of 32.0 to 32.9 in adult, unspecified obesity type (Primary Dx) from Last 3 Months Social [...] - Inhaled Oxygen Concentration - - Weight 87.5 kg (193 lb) 08/21/2025 8:39 AM EDT Height 165.1 cm (5' 5 ) 05/23/2025 3:42 PM EDT Body Mass Index 32.12 05/23/2025 3:42 PM EDT Plan of Treatment Upcoming Encounters Date Type Department Care Team (Late st Contact Info) Description 11/05/2025 8:15 AM EST Office Visit Bariatric Surgery - [place] [address] [phone] Levar Rushing MD [address] [place] [phone] 11/25/2025 8:30 AM EST Nutrition Bariatric Surgery - [place] [address] [phone] [phone] Health Maintenance Due Date Last Done Comments [...] Completed 04/13, 03/02/2019 Meningococcal B Vaccine Completed 06/15/20, 04/13/2021 MMR Vaccines Completed 09/03/2021, 01/02/2019 Varicella [...] patient's age to complete this topic Insurance [facility] Care Teams Brand Engineer Relationship Specialty Start Date End Date Demetri Winslow MD [id number] [place] [address] PCP - General Internal Medicine 05/22/25
--- OUTSIDE RECORDS SUMMARY | 2025-10-23 09:21 | XMS_ITS | Encounter Summary ---
Author Organization [facility] r Address [address] [place] [address] Phone Care Team Providers Care Ore Charger Name Role Phone Laura De Souza MD Primary Care Provider Aleshia Fatima MD Unavailable Turner Kemp MD Primary Care Provider [phone] Aleshia Fatima MD Primary Care Provider [phone] Encounter Details Date Type Department Care Team (Late st Contact Info) Description 03/23/2021 Telephone Pediatric Neurology [address] [place] [phone] [place] [address] Social History Tobacco Use Types Packs/Day Years Used Date Smoking Tobacco: Never Smokeless Tobacco: Never Housing Answer Date Recorded What is your living situation today? I have a [facility] place to live 02/15/2019 Medications Answer Date Recorded Do you have trouble paying for prescriptions? No 01/02/2019 Utilities Answer Date Recorded Do you have trouble paying f or utilites (heat, electricity, internet, or phone bill)? No 01/02/2019 Caregiving [place] Answer Date Recorded Taking care of a [...] on filedocumented in this encounter Care Teams Ore Charger Relationship Specialty Start Date End Date Laura De Souza MD PCP - General Adolescent Medicine 01/02/19 12/30/22 Aleshia Fatima MD PCP - Insurance 03/23/19 Turner Kemp MD [place] [phone] (Work) PCP - General Adolescent Medicine 12/31/22 04/06/23 Aleshia Fatima MD [address] [place] [address] PCP - General 03/05/24 documented as of this encounter
--- OUTSIDE RECORDS SUMMARY | 2025-10-23 09:21 | XMS_ITS | Clinical Summary ---
Author Organization [facility] r Address [address] [place] [address] Phone Care Team Providers Care Fire Information Officer Name Role Phone Aleshia Fatima MD Unavailable Aleshia Fatima MD Primary Care Provider [phone] Allergies No known active allergies Medications omeprazole [...] localized onset, not intractable, without status epilepticus ([facility]) 05/28/2019 Migraine without aura and wi thout [...] will need treatment F/u january 15 with tx Hepatitis B immune 01/03/2019 Seizure disorder ([facility]) 01/02/2019 Overview (01/02/2019): Abnormal MRI, EEG On [...] your living situation today? I have a [facility] place to live 02/15/2019 Medications Answer Date Recorded Do you have trouble paying for prescriptions? No 01/02/2019 Utilities Answer Date Recorded Do you have trouble paying f or utilites (heat, electricity, internet, or phone bill)? No 01/02/2019 Caregiving [place] Answer Date Recorded Taking care of a child, elder, or disabled perso n No 01/02/2019 Employment Answer Date Recorded [...] Hepatitis C Antibody Lifetim e Screening 2002 Oral Health Screen 05/05/2003 HEIP Disability [...] 08/21/2019 Cervical Cancer Screening 2023 Colposcopy 2023 LEEP 2023 PAP SMEAR 2023 Pap + HPV 2023 COVID-19 Vaccine (4 - 2024-12 6 season) 2025 06/22/2022, 06/04/2021, 05/14/2021 INFLUENZA [...] 7 PM EST 01/02/2019 12:17 PM EST Laura De Souza MD LAB BLOOD ORDERABLES Final Res ult [facility] CLIA [id number] [place] [address], * Hepatitis B surface Antigen (01/02/2019 12:07 PM EST) Hep B Surface Ag NON-REACTI VE NON-REACTI VE 01/02/2019 2:15 PM EST SUNQUEST 01/02/2019 12:0 7 PM EST 01/02/2019 12:16 PM EST us Laura De Souza MD LAB BLOOD ORDERABLES Final Res ult [facility] CLIA [id number] [place] [address], from Last 3 Months or Most Recently Relevant to Health Maintenance Care Teams Fire Information Officer Relationship Specialty Start Date End Date Aleshia Fatima MD PCP - Insurance 03/23/19 Aleshia Fatima MD [facility] [place] [address] PCP - General 03/05/24
--- NOTE | 2025-10-23 17:19 | MHC.OFFVISWM ---
VS Expanded 10/23/25 17:46 Height 5 ft 4 in Weight 193 lb 7 oz BMI 33.2 Body Fat % 42 Body Fat Mass 81.4 Fat Free Mass 112.2 Visceral Fat Rating 7 Body Water Mass 81 Basal Metabolic Rate/Score 1,624 Intake Visit Reasons: [facility] BMI 33.2 Allergies No Known Allergies Allergy (Verified 10/23/25 17:19) Medication List - Last Reconciled 10/23/25 by Kristian Kumar MD amoxicillin-pot clavulanate 875-125 mg 1 tab PO BID 7 days semaglutide (weight loss) (Wegovy) 0.5 mg subcut QWEEK HPI HPI [facility] BMI 33.2: Details: Start time: 5.15pm, End time: 5.47pm ?I spent 27 minutes speaking with the patient on the phone plus an additional 5 minutes reviewing and updating records for a total of 32 minutes HPI Comments Details: Previous weight loss efforts: Wegovy: 2 months: lost 10lbs (constipation) Wakes up: 7am, Sleeps: 11pm Breakfast: 8am (orange juice, Premier protein shake Lunch: 12pm (vegetables, meat and starch) Dinner: 6-7pm (same as lunch) Snacks: none Exercise: Gym membership (3/wk) Beverages: Coffee: rarely, Tea: occasionally, Soda: rarely, Juice (orange juice: 4/wk), ETOH: none PFSH Medical History (Updated 10/23/25 @ 17:40 by Kristian Kumar MD) BMI 32.0-32.9,adult Obesity UTI (urinary tract infection) Upper respiratory infection Dysuria Sore throat Cervical cancer screening Skin mole Low HDL (under 40) Hyperlipidemia LDL goal <100 Vitamin D deficiency Class 1 obesity with body mass index (BMI) of 34.0 to 34.9 in adult Epilepsy Establishing care with new doctor, encounter for Lump of right breast Surgical History No history of previous surgery Family History Father No problems noted. Mother No problems noted. Social History Housing: House Alcohol intake: current Alcohol intake frequency: holidays/special occasions only Patient Tobacco Use Status: Never used Tobacco service: No Current occupational status: employed Cognitive needs: No Hearing needs: No Vision needs: No Telehealth Telehealth Telehealth Platform: Telephone Location of provider rendering services: practice address Location of patient: address on file Patient Identification confirmed using: Name, : Yes Telehealth method: voice only Patient verbally consented to treatment: Yes Patient verbally consented to billing insurance company: Yes Patient informed of any privacy concerns related to visit: Yes Minutes spent on Phone/Video with Pt.: 32 Assessment & Plan Assessment & Plan (1) Obesity: Code(s): E66.9 - Obesity, unspecified Category: Medical Qualifiers: Obesity type: due to excess calories Obesity classification: adult class 1 (BMI 30 - 34.9) Serious obesity comorbidity presence: without serious comorbidity Body mass index: BMI 32.0-32.9 Qualified Code(s): E66.811 - Obesity, class 1; E66.09 - Other obesity due to excess calories; Z68.32 - Body mass index [BMI] 32.0-32.9, adult Plan: 1.???Nutritional counseling. Start with one premade PREMIER protein (buy at [employer], or [employer], or [employer]) shake (Mix 4oz of PREMIER and NOT the whole bottle WITH 4oz low fat unsweetended almond milk) at 8am-10am, 1 protein bar (16gr Fit Crunch protein bars, buy at [employer] or [employer]) at 11am-1pm, another premade PREMIER protein (Mix 4oz of PREMIER and NOT the whole bottle WITH 4oz low fat unsweetended almond milk) at 2pm-4pm, dinner at 5pm (8 forks of protein and 8 forks of salad/vegetables) another Fit Crunch protein bar after dinner at 7pm-9pm and if hungry another HALF Fit Crunch protein bar at 10pm-11pm So you do 2 protein shakes, 2-2.5 protein bars and one meal per day. Meal to include lean meat (beef, fish, pork, turkey, chicken), or malaysian yogurt, or egg whites, or beans with a salad with olive oil and fruits (berries, pears, apples, kiwi). Avoid salt, breads, potatoes, rice, pasta, desserts. 2. Continue the Wegovy for weight loss. Please let me know when you have one injection left so I can prescribe the next dose.Common side effects include nausea, vomiting, constipation, diarrhea, abdominal pain. Please let me know if you develop any of these symptoms. 3. Each shake would be drunk slowly, like coffee in a period of 2 hours. 4. Cut each bar in 4 pieces and eat each piece in 30min ?to make each bar last 2 hours. 5. I emphasized the importance of measuring accurately the food portion and measure it when serving the food in plate 6. The meal portions include 8 full-size forks of meat and 8 full-size forks of salad. You always eat the meat portion but you can replace up to 4 forks for salad/vegetables with rice, potatoes or pasta, or a fruit ?if you like. The less you do it the better weight loss will be. 7. One full-size fork is what it can be scooped on the fork without falling aside and not what can be bit with the fork. Use regular forks like those you find in a typical restaurant. 8.? Please buy the body composition scale we discussed and send me weight measurements as soon as possible and then once a week. Always include your diet and exercise plan. 9. Start treadmill with an incline of 2.0 and speed of 3.0. Increase incline by 1 every 3 min to a max incline of 8.0, stay 3min at 8.0 and then return to 2.0 and repeat same steps until calorie goal is met. Goal is to burn 2000 calories per week on exercise, which means either 300 calories daily, or 400 calories 5 days per week, or 500 calories 4 days per week, or 650 calories 3 days per week. Start also weight exercises with 20-30lbs for chest/shoulders/abdomen and 40-50lbs for thighs doing 2 sets of 15 repetitions each. 10. The best choice would be to purchase a stationary bike, elliptical or treadmill at home that can track calories. Let me know if you do so I can give you an exercise plan. 11.?It is important of avoiding and for at least 18 months postoperatively and has been discussed at the infosession. 12. Goal is to lose at least 1.5-2lbs per week 13. Goal to lose at least 10% of your weight, which is about 20lbs. Minimum weight goal: 173lbs 14. Please follow the diet plan exactly without any change. If you don't like something about the plan or you feel hungry you need to communicate with me so I can help you revise the plan. You should not change the plan yourself
[2025-10-23 17:46] VITALS: BMI 33.2
== END 2025-10-23 17:49 | disposition home or self-care (01) ==
LOC: HO.HBS 08:48
PROVIDERS: PCP Physician Assistant Medical; Visit Provider Surgery
DX: E66.811 Obesity, class 1 (principal); Z68.33 Body mass index [BMI] 33.0-33.9, adult
CPT/HCPCS: 98009